=== PATIENT | female | born 1985 | race Caucasian/White ===

== ENCOUNTER 2017-10-06 19:44 | Emergency (ER) | payer OTHER ==
[~2017-10-06] VITALS: Ht 157.5 cm; Wt 48.3 kg
[2017-10-06 19:45] VITALS: Ht 157.5 cm; Wt 48.3 kg
[2017-10-06] MEDS ORDERED: morphine 4 MG/ML VIAL IV STA (21:22)
[2017-10-06] MEDS ORDERED: ONDANSETRON 4 MG INJ IV STA (21:22)
--- NOTE | 2017-10-06 21:28 | ERD ---
ER Documentation Chief Complaint Chief Complaint c/o right sided flank pain x 3 days. Aggravated by coughing. HPI Otherwise healthy 32-year-old female presenting with a chief complaints of right upper quadrant abdominal pain 2 days. Patient states she had an upper respiratory infection that resolved 1 week ago. Has not taken any medications no recent hospitalizations. Tolerates p.o. Vaccination status up-to-date. No recent travel. Denies fever, nausea, vomiting, constipation, diarrhea, similar symptoms in the past or sick contacts. Patient has no other complaints and describes no other associated manifestations. ROS All systems reviewed and are negative except as per history of present illness. Allergies Allergies: Coded Allergies: No Known Allergy (Unverified , 10/06/17) PMhx/Soc Medical and Surgical Hx: pt denies Medical Hx, pt denies Surgical Hx History of Surgery: No Anesthesia Reaction: No Hx Neurological Disorder: No Hx Respiratory Disorders: No Hx Cardiac Disorders: No Hx Psychiatric Problems: No Hx Miscellaneous Medical Probl: No Hx Alcohol Use: No Hx Substance Use: No Hx Tobacco Use: No Smoking Status: Never smoker Physical Exam Vitals Vital Signs Date Time Temp Pulse Resp B/P Pulse Ox O2 Delivery O2 Flow Rate FiO2 10/06/17 19:45 98.8 94 18 103/68 98 Physical Exam Const: Healthy-appearing. Well-nourished. Well-developed. No acute distress. Abd: Right upper quadrant tenderness. No flank tenderness. Normal bowel sounds. No bruits auscultated. No masses palpated. Soft and nondistended. Mild rebound guarding. Negative Rovsing sign. Back: No CVA tenderness. No midline or flank tenderness. Head: Normocephalic, Atraumatic. Eyes: Non-injected; No scleral erythema, discharge or foreign body. EOMI and LFORI bilaterally. Ears: Normal External Ears, EACs clear, TM normal bilaterally without erythema. Nose: Hypopigmentation at the tip of the nose. Oral: No oral edema visualized. Mucous membranes moist and pink. Neck: No cervical lymphadenopathy, masses or goiter palpated. Trachea midline. Supple ~ No meningismus. Pulm: No dyspnea, stridor, tripoding or drooling. Good air movement. Clear to auscultation bilaterally. Cardio: Regular rate and rhythm; No murmurs, gallops or rubs auscultated. No JVD grossly observed. Radial and posterior tibial pulses 2+ bilaterally. Capillary refill less than 2 seconds. MS: Normal motor strength, normal tone with gross examination. Skin: No petechiae or rashes. No ulcer, induration, jaundice. Good turgor. Ext: No cyanosis, edema or palpable cord. Normal movement of all extremities grossly observed. Neur: Awake, alert and oriented x3. Neurovascularly intact bilaterally. Psych: Normal Mood and Affect. Result Diagram: 10/06/17219910/06/172199 Results 24 hrs Laboratory Tests Test 10/06/17 21:45 10/06/17 22:00 Urine Color STRAW Urine Clarity CLEAR Urine pH 8.0 Urine Specific [place] 1.011 Urine Ketones NEGATIVEmg/dL Urine Nitrite NEGATIVEmg/dL Urine Bilirubin NEGATIVEmg/dL Urine Urobilinogen NEGATIVEmg/dL Urine Leukocyte Esterase NEGATIVELeu/ul Urine Hemoglobin NEGATIVEmg/dL Urine Glucose NEGATIVEmg/dL Urine Total Protein NEGATIVEmg/dl White Blood Count 12.710^3/ul Red Blood Count 4.0110^6/ul Hemoglobin 11.0g/dl Hematocrit 33.7% Mean Corpuscular Volume 84.0fl Mean Corpuscular Hemoglobin 27.4pg Mean Corpuscular Hemoglobin Concent 32.6g/dl Red Cell Distribution Width 13.0% Platelet Count 82038^3/UL Mean Platelet Volume 9.9fl Neutrophils % 71.9% Lymphocytes % 20.1% Monocytes % 6.8% Eosinophils % 0.6% Basophils % 0.2% Nucleated Red Blood Cells % 0.0/100WBC Neutrophils # 9.110^3/ul Lymphocytes # 2.610^3/ul Monocytes # 0.910^3/ul Eosinophils # 0.110^3/ul Basophils # 0.010^3/ul Nucleated Red Blood Cells # 0.010^3/ul Prothrombin Time 14.8Sec Prothrombin Time Ratio 1.2 INR International Normalized Ratio 1.16 Activated Partial Thromboplast Time 38.4Sec Sodium Level 141mmol/L Potassium Level 3.7mmol/L Chloride Level 105mmol/L Carbon Dioxide Level 29mmol/L Anion Gap 11 Blood Urea Nitrogen 12mg/dl Creatinine 0.58mg/dl Glucose Level 84mg/dl Calcium Level 9.1mg/dl Total Bilirubin 0.2mg/dl Direct Bilirubin 0.00mg/dl Indirect Bilirubin 0.2mg/dl Aspartate Amino Transf (AST/SGOT) 18IU/L Alanine Aminotransferase (ALT/SGPT) 29IU/L Alkaline Phosphatase 61IU/L Total Protein 7.7g/dl Albumin 3.9g/dl Globulin 3.80g/dl Albumin/Globulin Ratio 1.02 Lipase 200U/L Current Medications Medications (Trade) Dose Ordered Sig/Jaskaran Route PRN Reason Start Time Stop Time Status Last Admin Dose Admin Morphine Sulfate (morphine) 4 mg ONCE STAT IV 10/06/17 21:22 10/06/17 21:24 DC 10/06/17 22:07 Ondansetron HCl (Zofran Inj) 4 mg ONCE STAT IV 10/06/17 21:22 10/06/17 21:24 DC 10/06/17 22:07 Procedures/MDM Otherwise healthy 32-year-old female presenting with a chief complaint of right upper quadrant abdominal pain as described in history and physical examination. Patient was given normal saline, morphine, and Zofran with relief of symptoms in the emergency department. Labs were largely unremarkable. Urinalysis unremarkable. Urine negative. CT and ultrasound were read by the radiologist and showed contracted gallbladder with no evidence of stones; otherwise unremarkable. Most likely diagnosis is gallbladder contraction versus abdominal pain of unknown etiology. At this time I do not suspect pneumonia, cholangitis, cholecystitis, intestinal ischemia or pyelonephritis. As well as hepatitis, appendicitis, acute pancreatitis, or pneumonia. Upon reevaluation patient's abdomen was soft nontender. The patient is well appearing, and tolerates PO. I have spoke with the patient regarding their condition and future management. They have verbally responded that they understand their status and treatment plan. The patients vitals are stable, and their current condition is appropriate for discharge. The patient will be given discharge instructions with return precautions. Departure Diagnosis: Primary Impression: Contraction, gallbladder Condition: Stable Additional Instructions: Follow up with your PCP within the next 1-3 days for a more thorough evaluation and a possible referral to a specialist. Return the the emergency department immediately if symptoms worsen or change. If you have any questions regarding medications, ask your pharmacist or us before you leave. If any adverse reactions occur while taking your medications, discontinue the treatment and return to the emergency department immediately. Take your medications as directed, and complete the entire course of treatment. MARY RUBIO PA-C 9, 2017 21:28
--- NOTE | 2017-10-06 21:48 | RADRPT ---
PROCEDURE: US Abdomen. CLINICAL INDICATION: abdominal pain TECHNIQUE: Multiple real-time images were acquired of the patient's right upper quadrant abdomen a nd retroperitoneum utilizing a high resolution transducer. COMPARISON: None FINDINGS: The liver demonstrates normal echogenicity. The liver is normal in size and no focal solid lesions are seen. The liver measures 12.9 cm in length. The portal vein is patent with normal direction of f low. No intrahepatic biliary dilatation is seen. The gallbladder is contracted and not well seen. No gallstones are identified within the gallbladder . There is no pericholecystic fluid or gallbladder wall thickening. The common bile duct measures 4 .5 mm in maximal dimension. The visualized portions of the pancreas are unremarkable. The tail of the pancreas is not seen. No free fluid is identified. The right kidney is normal in size, and demonstrate normal echogenicity and cortical thickness. The right kidney measures 10.3 cm in long dimension. There is no evidence of hydronephrosis. There are no kidney stones. RPTAT: AA IMPRESSION: Contracted gallbladder with no evidence of gallstones. .Dallas Wiley MD, Date Time Electronically viewed and signed by .Dallas Wiley MD, on 10/06/2017 21:48 .S/
--- NOTE | 2017-10-06 23:28 | RADRPT ---
PROCEDURE: CT ABDOMEN/PELVIS WITHOUT CONTRAST CLINICAL INDICATION: 32-year-old female with right flank pain. TECHNIQUE: The study was performed utilizing a [employer] VCT 64-slice CT scanner. Direct axia l sections were obtained through the abdomen and pelvis without the use of intravenous contrast mate rial. Sagittal and coronal reformations were obtained. One or more of the following dose reduction t echniques were utilized: automated exposure control, adjustment of the mA and/or kV according to pat ient's size and/or the use of iterative reconstruction technique. The images were reviewed on a PAC S workstation. CTD/vol = 7.1 mGy; Total Exam DLP = 336.1 mGy-cm. COMPARISON: Ultrasound right upper quadrant October 06, 2016. FINDINGS: There is mild focal patchy infiltrate and/or scarring within the anterior segment of the left lower lobe. There is no evidence for significant pleural effusion. The liver has a normal size and conto ur without focal areas of abnormal density. No intrahepatic nor extrahepatic biliary ductal dilatati on is seen. The gallbladder demonstrates no wall thickening nor pericholecystic fluid. No biliary st ones are evident. The pancreas is without areas of abnormal attenuation. The spleen is identified a nd has a normal size without abnormal density. The adrenal glands are unremarkable. The kidneys are without abnormal density. No hydroureteronephrosis nor nephroureterolithiasis is evident. The urinar y bladder contains urine. There is fecalization of the distal small bowel. There is mild retained st ool within the colon without obstruction. The appendix is visualized and is without abnormal thicke brittany or surrounding inflammatory reaction. The uterus is anteflexed. There is no significant free fluid. The aortoiliac vessels are without aneurysmal dilatation. The osseous structures are intact. IMPRESSION: 1. Patchy infiltrate and/or scarring anterior segment left lower lobe. 2. No CT evidence for obstructive uropathy or renal calculi. 3. Fecalization distal small bowel with mild retained stool without obstruction. 4. No CT evidence for appendicitis. .Castillo Lawrence MD, Date Time Electronically viewed and signed by .Castillo Lawrence MD, MD on 10/06/2017 23:28 .[place]
== END 2017-10-07 00:25 | disposition home or self-care (01) ==
LOC: FTE 19:44
DX: K82.8 Other specified diseases of gallbladder (principal)
CPT/HCPCS: 36415; 74176; 76705; 80053; 81003; 83690; 85025; 85610; 85730; 96374; 96375; J2270; J2405; Z7502